=== PATIENT | female | born 1990 | race Caucasian/White ===

== ENCOUNTER 2022-07-10 18:33 | Emergency (ER) | payer OTHER, SELFPAY ==
[2022-07-10 18:46] VITALS: BP 130/74; PULSE 84; RESP 20; TEMP 36.4; O2SAT 100
--- NOTE | 2022-07-10 19:50 | ED.DIZZY ---
HPI - Dizziness General Chief Complaint: Dizziness Stated Complaint: Dizziness/Blood Pressure Problem Time Seen by Provider: 07/10/22 19:50 Source: patient and RN notes reviewed Mode of arrival: ambulatory Limitations: no limitations History of Present Illness HPI Narrative: 31-year-old female presented for complaint of feeling dizzy today at work. She endorses lightheadedness and feeling shaky. Sensation is worse when standing up. She checked her blood pressure were considered the highest was 130/96. She also reports her son tested positive for influenza 1 week ago. She currently denies change in sinus congestion from baseline, shortness of breath, palpitations, vomiting, diarrhea, fevers or chills. Related Data Home Medications Medication Instructions Recorded Confirmed drospirenone (contraceptive) 4 mg 07/10/22 (28) tablet (Slynd) Allergies Allergy/AdvReac Type Severity Reaction Status Date / Time No Known Allergies Allergy Verified 07/10/22 18:48 Review of Systems Review of Systems: ROS per HPI All systems reviewed & are unremarkable except as noted in HPI and below PMFSH Comments At time of signature, I have reviewed and agree with nursing past medical, surgical, social and family history unless otherwise noted. Please see nursing chart for further information. There is no relevant family history pertinent to the presenting complaint Exam Narrative: GENERAL: Well-appearing ENT: Mucous membranes pink and moist. No rhinorrhea. TMs normal bilaterally. NECK: Normal AROM. Supple. No lymphadenopathy. CHEST: Clear to auscultation. HEART: Regular rate and rhythm. No murmur appreciated. Normal peripheral pulses. ABDOMEN: Soft, nontender, nondistended, normal active bowel sounds. SKIN: Warm, dry, no rash. Capillary refill normal. Normal skin turgor. NEURO:No focal deficits. Alert and oriented x3. EOMs intact without nystagmus. No facial droop/asymmetry noted bilaterally. Grimace intact. Intact sensation in face. Hearing intact bilaterally. Shoulder shrug intact. Strength 5/5 bilateral upper extremities. Strength 5/5 bilateral lower extremities.Ambulatory exam with a normal based, steady gait. PSYCH: Normal affect. Course Course Emergency Course: Patient is aware of diagnosis, understands and agrees to treatment plan. Anticipatory guidance given. Patient agrees to follow-up as directed and is aware of reasons to seek care at the emergency department. Portions of this record may have been created with voice recognition software Level of Care: [facility] Care Visit Vital Signs Vital signs: Vital Signs Temperature 97.6 F 07/10/22 18:46 Pulse Rate 84 07/10/22 18:46 Respiratory Rate 20 07/10/22 18:46 Blood Pressure 130/74 07/10/22 18:46 Pulse Oximetry 100 07/10/22 18:46 Oxygen Delivery Room Air 07/10/22 18:46 Temperature 97.6 F 07/10/22 18:46 Pulse Rate 84 07/10/22 18:46 Respiratory Rate 20 07/10/22 18:46 Blood Pressure 130/74 07/10/22 18:46 Pulse Oximetry 100 07/10/22 18:46 Oxygen Delivery Room Air 07/10/22 18:46 MDM - Dizziness MDM Narrative Medical decision making narrative: Blood sugar 86. Influenza result reviewed with patient. Advised supportive measures and signs/symptoms to go to the ER. Pt is appropriate for outpt treatment and f/u. Differential Diagnosis Differential diagnosis: Likely benign paroxysmal positional vertigo, orthostatic hypotension, acute vestibular neuronitis and other (dehydration) Lab Data Labs: Lab Results 07/10/22 Range/Units 20:04 POC Capillary Glucose 89 (65-105) mg/dl Influenza A Screen Negative Reference Range: Negative Influenza B Screen Negative Reference Range: Negative Discharge Plan Discharge Clinical Impression: Dizziness Patient Disposition
[2022-07-10 20:08] LABS: Glucose Point of Care 89 mg/dl (65-105)
== END 2022-07-10 20:31 | disposition home or self-care (01) ==
PROVIDERS: Emergency Provider Nurse Practitioner Family; PCP Nurse Practitioner Family
DX: R42 Dizziness and giddiness (principal)
CPT/HCPCS: 82948; 87804; 99213; G0463

== ENCOUNTER 2023-01-21 16:20 | Emergency (ER) | payer OTHER, SELFPAY ==
[2023-01-21 16:24] VITALS: BP 135/71; PULSE 118; RESP 20; TEMP 37.8; O2SAT 95
--- NOTE | 2023-01-21 16:42 | ED.URI ---
HPI - URI/Sore Throat General Chief Complaint: Upper Respiratory Infection Stated Complaint: cold / flu fever Time Seen by Provider: 01/21/23 16:42 Source: patient, RN notes reviewed and old records reviewed Mode of arrival: ambulatory Limitations: no limitations History of Present Illness HPI Narrative: 32 year old female who presents to express care with complaints of cough for 3 week duration with congestion and expectoration of greenish brown mucous. Patient reports that since yesterday she has had sore throat chills and has felt hot, has been taking Tylenol and also Zyrtec for her symptoms. Patient reports that son is also been ill and has appointment with hotel assistant manager tomorrow. MD elicited complaint: fever, cough, sore throat and nasal congestion Onset (ago): week(s) (cough 3 weeks, sore throat and fever since yesterday.) Severity: severe Pain scale (0-10): 10 Able to tolerate fluids by mouth: Yes Exacerbating factors: swallowing Treatments prior to arrival: acetaminophen and other (Zyrtec) Related Data Home Medications Medication Instructions Recorded Confirmed drospirenone (contraceptive) 4 mg 07/10/22 (28) tablet (Slynd) Allergies Allergy/AdvReac Type Severity Reaction Status Date / Time No Known Allergies Allergy Verified 07/10/22 18:48 Review of Systems Review of Systems: CONSTITUTIONAL: positive for malaise, chills, sweats, or fever. EYES: Denies visual changes, redness, or discharge. ENT: Reports rhinorrhea, congestion, sinus pain, no otalgia positive for sore throat. CARDIOVASCULAR: Denies chest pain, palpitations, or edema. RESPIRATORY: Reports cough.? Denies dyspnea. GASTROINTESTINAL: Denies abdominal pain, nausea, vomiting, diarrhea SKIN: Denies rash or itching. MUSCULOSKELETAL: Denies myalgia. NEUROLOGIC:positive for headache. All systems reviewed & are unremarkable except as noted in HPI and below PMFSH Past Medical History Medical History (Updated 01/22/23 @ 11:07 by Nancy Frost NP) Anxiety and depression Surgical History Surgical History (Updated 01/22/23 @ 11:03 by Nancy Frost NP) Previous section Social History Social History (Updated 01/22/23 @ 11:04 by Nancy Frost NP) Smoking status: Current every day smoker Tobacco type: e-cigarettes/vaping Alcohol intake: unknown Substance use: unknown Living arrangements: with family Gender identity (if verbalized by the patient): Female Comments At time of signature, agree with nursing past medical, surgical, social and family history. There is no relevant family history pertinent to the presenting complaint Exam Narrative: GENERAL: Well-appearing, well-nourished, and in no acute distress. HEAD: Normocephalic EYES: PERRLA, conjunctivae clear ENT: Nares clear, turbinates edematous and erythematous, yellow discharge. Mucous membranes moist. Right TM red with no drainage noted, LeftTM pearly lee with dull light reflex bilaterally; no tragal tenderness. Oropharynx erythematous without lesions. Tonsils mildly enlarged and without exudate, no drooling, no hoarseness, no trismus, uvula midline.post nasal drainage present NECK: Supple. No lymphadenopathy CHEST: Clear to auscultation, breath sounds equal. No wheezing, rhonchi, rales, or stridor. No respiratory distress, speaks in full sentences.cough, SAO2 95% on room air HEART: Regular rate and rhythm. No murmur heard. SKIN: Warm, dry, no rash. NEURO: Alert and oriented x3. PSYCH: Normal mood and affect Course Course Emergency Course: Patient is aware of diagnosis, understands and agrees to treatment plan.? Anticipatory guidance given.? Patient agrees to follow-up as directed and is aware of reasons to seek care at the emergency department. Portions of this record may have been created with voice recognition software Level of Care: Express Care Visit Vital Signs Vital signs: Vital Signs Temp
== END 2023-01-21 17:04 | disposition home or self-care (01) ==
PROVIDERS: Emergency Provider Registered Nurse; PCP Nurse Practitioner Family
DX: H66.91 Otitis media, unspecified, right ear (principal); J06.9 Acute upper respiratory infection, unspecified; F17.290 Nicotine dependence, other tobacco product, uncomplicated
CPT/HCPCS: 87081; 87880; 99213; G0463

== ENCOUNTER 2023-05-15 11:21 | Emergency (ER) | payer OTHER, SELFPAY ==
--- NOTE | 2023-05-15 11:29 | ED.URI ---
HPI - URI/Sore Throat General Chief Complaint: Ear Stated Complaint: ears Time Seen by Provider: 05/15/23 11:31 Source: patient, RN notes reviewed and old records reviewed Mode of arrival: ambulatory Limitations: no limitations History of Present Illness HPI Narrative: 32-year-old female presents to [facility] complaints right ear pain for couple of days. Patient states that whenever her child gets an ear infection she typically gets 1. No treatment prior to arrival Related Data Home Medications Medication Instructions Recorded Confirmed drospirenone (contraceptive) 4 mg 07/10/22 (28) tablet (Slynd) Allergies Allergy/AdvReac Type Severity Reaction Status Date / Time No Known Allergies Allergy Verified 05/15/23 11:37 Review of Systems Review of Systems: All systems reviewed & are unremarkable except as noted in HPI and below Constitutional: Constitutional: Reports no additional constitutional complaints Eyes: Eyes: Reports no additional eye complaints ENT: Reports as per HPI and Reports otalgia (Right) Cardiovascular: Cardiovascular: Reports no additional cardiovascular complaints, Denies chest pain and Denies dyspnea Respiratory: Respiratory: Reports no additional respiratory complaints, Denies chest congestion, Denies cough and Denies dyspnea Gastrointestinal: Gastrointestinal: Reports no additional gastrointestinal complaints, Denies abdominal pain, Denies nausea and Denies vomiting Musculoskeletal: Musculoskeletal: Reports no additional musculoskeletal complaints Integumentary/Breasts: Skin/Breast: Reports system reviewed and no additional complaints, except as docu Neurologic: Reports system reviewed and no additional complaints, except as documented Psychiatric: Psychiatric: Reports no additional psychiatric complaints Allergic/Immunologic: Allergic/Immunologic: Reports no additional allergic/immunologic complaints [facility] Past Medical History Medical History Anxiety and depression Surgical History Surgical History Previous section Social History Social History Smoking status: Current every day smoker Tobacco type: e-cigarettes/vaping Alcohol intake: unknown Substance use: unknown Living arrangements: with family Gender identity (if verbalized by the patient): Female Comments At the time of my signature, I reviewed and agree with the nursing past medical, surgical, social, and family history. There is no relevant family history pertinent to the patient complaint. Exam Const: General: cooperative, healthy appearing, comfortable, no acute distress, well developed, alert and well nourished Nutritional Appearance: well nourished Orientation/consciousness: patient oriented x3 Limitations: no limitations HENMT: Head: normal to inspection Ears: hearing grossly normal bilaterally, external ears normal, EAC's normal, mastoids normal and TM abnormal with fluid behind the TM bilateral; not erythematous Face/Nose/Sinus: Normal external nose present, Normal nares present, Normal nasal mucous membranes and turbinates present, normal facial exam and face symmetric Face and sinus: normal facial exam and face symmetric Mouth: Yes Normal oral and palatal mucosa present, Yes lip normal and Yes moist mucous membranes Throat: posterior oropharynx normal, uvula midline and postnasal drainage Eyes: General: appearance normal, both eyes and all related structures Alignment and Position: alignment normal Periorbital: periorbital findings normal Pupils: Equal, round and reactive pupils present EOM: EOMs intact bilaterally Neck: Neck: normal visual inspection, full ROM, no lymphadenopathy and no meningeal signs Chest: Chest palpation & inspection: normal inspection of the chest Resp: Effort & Inspection: normal respirator
[2023-05-15 11:33] VITALS: BP 131/80; PULSE 82; RESP 18; TEMP 36.2; O2SAT 98
== END 2023-05-15 11:53 | disposition home or self-care (01) ==
PROVIDERS: Emergency Provider Nurse Practitioner; PCP Nurse Practitioner Family
DX: H65.03 Acute serous otitis media, bilateral (principal); F17.290 Nicotine dependence, other tobacco product, uncomplicated
CPT/HCPCS: 99213; G0463

== ENCOUNTER 2023-07-29 16:19 | Emergency (ER) | payer OTHER, SELFPAY ==
--- NOTE | ~2023-07-29 | XR_ITS ---
EXAMINATION: [id number] DATE: 07/29/2023 16:53 INDICATION: Loss of range of motion. TECHNIQUE: 4 views of cervical spine were obtained. COMPARISON: None. FINDINGS: Bone alignment is normal. Vertebral body heights and intervertebral disc heights are normal . The facet joints are normal. No central canal stenosis or prevertebral soft tissue swelling. IMPRESSION: 1. Normal cervical spine. Reviewed, dictated and finalized at location A. UME DESIGNER IMPRESSION: 1. Normal cervical spine.
--- NOTE | ~2023-07-29 | XR_ITS ---
EXAM: XR shoulder LT min 2V DATE: 07/29/2023 16:54 HISTORY: [employer]. [employer]. LROM X 1 WEEK. . COMPARISON: None available. FINDINGS: Normal mineralization. No fracture. Mild AC joint widening. Mild superior displacement of the distal clavicle. No lytic or blastic lesion. Joint spaces are maintained. No erosion or periostea l change. Soft tissues within normal limits. IMPRESSION: Radiographic findings consistent with acute or chronic AC joint injury. Reviewed, dictated and finalized at location K. PROOFER IMPRESSION: Radiographic findings consistent with acute or chronic AC joint inj ury.
[2023-07-29 16:22] VITALS: BP 138/85; PULSE 92; RESP 20; TEMP 36.6; O2SAT 100
[2023-07-29 16:34] VITALS: BP 138/85; PULSE 92; RESP 20; TEMP 36.6; O2SAT 100
--- NOTE | 2023-07-29 16:40 | ED.GENADULT ---
HPI - General Adult General Chief complaint: Extremity Injury, Upper Stated complaint: left side neck/shoulder pain Time Seen by Provider: 07/29/23 16:40 Source: patient, RN notes reviewed and old records reviewed Mode of arrival: ambulatory Limitations: no limitations History of Present Illness HPI narrative: 32 year old female who presents to the [facility] care with complaints of pain to the posterior cervical region and to posterior aspect of left shoulder which radiates down upper arm to mid way point of upper arm for one week duration with no known injury, Patient states that she awoke with pain last Friday morning. Patient reports that she does do a lot of heavy lifting at her job at the [employer]. Patient reports that she has taken muscle relaxers and some pain pills which have not helped her pain and used Biofreeze ointment. Patient is right hand dominant. MD complaint: posterior neck and pain down posterior left shoulder to mid upper arm. Onset (ago): week(s) (1 week) Location: neck (posterior) and left (posterior shoulder) Radiation: other (half way down left upper arm) Severity scale (1-10): 10 Quality: aching, constant and other (soreness) Exacerbating factors: movement Treatments prior to arrival: other (muscle relaxer and pain pills and Biofreeze) Related Data Home Medications Medication Instructions Recorded Confirmed drospirenone (contraceptive) 4 mg 4 mg PO DAILY 07/10/22 07/29/23 (28) tablet (Slynd) venlafaxine 75 mg capsule,extended 75 mg PO DAILY 07/29/23 07/29/23 release 24 hr Allergies Allergy/AdvReac Type Severity Reaction Status Date / Time No Known Allergies Allergy Verified 07/29/23 16:34 Review of Systems Review of Systems: CONSTITUTIONAL: Denies fever, chills, or sweats. EYES: Denies visual changes, redness, or discharge. ENT: Denies rhinorrhea, congestion, sore throat, or otalgia. CARDIOVASCULAR: Denies chest pain, palpitations, or edema. RESPIRATORY: Denies cough or dyspnea. GASTROINTESTINAL: Denies abdominal pain, nausea, vomiting, or diarrhea. GENITOURINARY: Denies dysuria or hematuria. SKIN: Denies rash or itching. MUSCULOSKELETAL: Denies back pain positive for pain posterior neck and posterior left shoulder radiating half was down left upper arm, joint pain, or myalgia. NEUROLOGIC: Denies headache, numbness, or weakness. PSYCHIATRIC: Positive for History of anxiety or depression. All systems reviewed & are unremarkable except as noted in HPI and below PMFSH Past Medical History Medical History Anxiety and depression Surgical History Surgical History Previous section Social History Social History Smoking status: Current every day smoker Tobacco type: e-cigarettes/vaping Alcohol intake: unknown Substance use: unknown Living arrangements: with family Gender identity (if verbalized by the patient): Female Comments At time of signature, agree with nursing past medical, surgical, social and family history. There is no relevant family history pertinent to the presenting complaint Exam Narrative: GENERAL: Well-appearing, well-nourished, and in no acute distress. HEAD: Normocephalic, atraumatic. EYES: PERRLA and EOMI. ENT: Nares clear, no rhinorrhea or epistaxis. Mucous membranes moist. NECK: Supple. no lymphadenopathy CHEST: Clear to auscultation. No respiratory distress. SAO2 100% on room air HEART: Regular rate and rhythm. No murmur heard. Normal peripheral pulses. ABDOMEN: Soft, nontender, nondistended, normal active bowel sounds. EXTREMITIES: Normal range of motion. No edema.Exception noted to pain and decreased tolerance for mobility of left arm and shoulder for one week duration,Pain to posterior neck also with movemtn and palpation. Patient has strong pulses to left arm,denies any
== END 2023-07-29 17:32 | disposition home or self-care (01) ==
PROVIDERS: Emergency Provider Registered Nurse; PCP Nurse Practitioner Family
DX: M54.2 Cervicalgia (principal); M25.512 Pain in left shoulder; Z79.899 Other long term (current) drug therapy; F17.290 Nicotine dependence, other tobacco product, uncomplicated
CPT/HCPCS: 72040; 73030; 99214; G0463

== ENCOUNTER 2023-08-18 16:39 | Emergency (ER) | payer OTHER, SELFPAY ==
[2023-08-18 17:00] VITALS: BP 130/79; PULSE 78; RESP 20; TEMP 37.2; O2SAT 100
--- NOTE | 2023-08-18 17:09 | ED.URI ---
HPI - URI/Sore Throat General Chief Complaint: Upper Respiratory Infection Stated Complaint: Nausea, Cough, Congestion, Diarrhea History of Present Illness HPI Narrative: Patient presents with a 3 day history of nasal congestion cough fever and body aches. Patient states she has some nausea and diarrhea but is tolerating liquids well. No abdominal pain. Related Data Home Medications Medication Instructions Recorded Confirmed drospirenone (contraceptive) 4 mg 4 mg PO DAILY 07/10/22 08/18/23 (28) tablet (Slynd) venlafaxine 75 mg capsule,extended 75 mg PO DAILY 07/29/23 08/18/23 release 24 hr naproxen 500 mg tablet mg 08/18/23 Allergies Allergy/AdvReac Type Severity Reaction Status Date / Time No Known Allergies Allergy Verified 07/29/23 16:34 Review of Systems Review of Systems: CONSTITUTIONAL: Denies chills, or sweats. Reports fever and generalized body aches EYES: Denies visual changes, redness, or discharge. ENT: Denies otalgia. Reports nasal congestion runny nose and sore throat CARDIOVASCULAR: Denies chest pain, palpitations, or edema. RESPIRATORY: Denies dyspnea. Reports occasional cough GASTROINTESTINAL: Denies abdominal pain, nausea, vomiting, or diarrhea. GENITOURINARY: Denies dysuria or hematuria. SKIN: Denies rash or itching. MUSCULOSKELETAL: Denies back pain, joint pain, or myalgia. Reports generalized body aches NEUROLOGIC: Denies headache, numbness, or weakness. PSYCHIATRIC: Denies anxiety or depression. PMFSH Past Medical History Medical History Anxiety and depression Surgical History Surgical History Previous section Social History Social History Smoking status: Current every day smoker Tobacco type: e-cigarettes/vaping Alcohol intake: unknown Substance use: unknown Living arrangements: with family Gender identity (if verbalized by the patient): Female Comments At time of signature, agree with nursing past medical, surgical, social and family history. There is no relevant family history pertinent to the presenting complaint Exam Narrative: The patient is a well-developed, well-nourished in no acute distress. SKIN: Skin is warm and dry without erythema, swelling or exudate. There is good turgor. No tenting. HEAD: Atraumatic. Normocephalic. No temporal or scalp tenderness. EYES: Moist and bright. Sclera and conjunctivae normal. No discharge. PERRLA. Extraocular motions intact. Gross visual acuity intact. EARS: Pinna is normal shape and contour. Clear external auditory canals. TM pearly reyna with good cone of light, no erythema or suppuration. Bilateral cerumen noted no gross hearing deficit. NOSE: pink, moist mucosa with good air movement. Clear rhinorrhea without nasal flaring. Septum midline. Mouth: moist mucous membranes. THROAT; mild erythema noted to posterior oropharynx with moderate postnasal drainage. Without exudate or ulceration.. Uvula midline. Normal movement of soft palate. NECK: Supple and nontender with full range of motion without discomfort. No meningeal signs. LUNGS: Equal and bilateral breath sounds without wheezes, rales or rhonchi. CHEST: The chest wall is without retractions or use of accessory muscles. HEART: Has a regular rate and rhythm without murmur, gallops, click or rub. ABDOMEN: Soft, nontender with positive active bowel sounds. No rebound tenderness. EXTREMITIES: Without cyanosis, clubbing or edema. Equal 2+ distal pulses and 2 second capillary refill noted. NEUROLOGIC: alert, active, . The patient moves all extremities with normal muscle strength. Normal muscle tone is noted. Normal coordination is noted. NO focal neurological findings noted. Course Course Level of Care: Express Care Visit Discharge Plan Discharge Clinical Impression: Upper respiratory in
== END 2023-08-18 17:25 | disposition home or self-care (01) ==
PROVIDERS: Emergency Provider Nurse Practitioner Family; PCP Nurse Practitioner Family
DX: J06.9 Acute upper respiratory infection, unspecified (principal); B34.9 Viral infection, unspecified; Z20.822 Contact with and (suspected) exposure to COVID-19; F17.290 Nicotine dependence, other tobacco product, uncomplicated; F41.9 Anxiety disorder, unspecified; F32.A Depression, unspecified
CPT/HCPCS: 87426; 87804; 99213; G0463